=== PATIENT | female | born 1980 | race Caucasian/White ===

== ENCOUNTER 2019-04-25 12:18 | Emergency (ER) | payer OTHER, SELFPAY ==
[2019-04-25 12:56] VITALS: BP 116/66; PULSE 85; RESP 18; TEMP 36.9; O2SAT 98
[2019-04-25 14:24] LABS: Basophils Percent Auto 0.5 % (0.2-1.2); Eosinophils Absolute Auto 0.1 K/mm3 (0-0.3); Eosinophils Percent Auto 1.8 % (0-4.4); Hematocrit 39.9 % (37.0-47.0); Hemoglobin 13.2 g/dL (12.0-15.0); Immature Granulocyte Absolute 0.02 K/mm3 (0.00-0.031); Immature Granulocyte Percent A 0.3 % (0-0.5); Lymphocytes Absolute Auto 1.97 K/mm3 (0.9-3.2); Lymphocytes Percent Auto 26.9 % (18.3-44.2); Mean Corpuscular HGB Conc 33.1 g/dl (32-36); Mean Corpuscular Hemoglobin 29.5 pg (26-34); Mean Corpuscular Volume 89.1 fl (80-100); Mean Platelet Volume 9.2 fl (7.4-10.4); Monocytes Absolute Auto 0.6 K/mm3 (0.1-0.6); Monocytes Percent Auto 7.5 % (2.6-8.5); Neutrophils Absolute Auto 4.6 K/mm3 (1.3-6.7); Platelet Count Result 239 k/mm3 (150-375); Red Blood Count 4.48 M/mm3 (4.2-5.4); Red Cell Distribution Width 12.5 % (11.5-14.5); White Blood Count 7.3 K/mm3 (4.5-10.0)
[2019-04-25 14:36] LABS: Alanine Aminotransferase 19 U/L (4-35); Albumin Level 4.7 g/dL (3.5-5.1); Alkaline Phosphatase 152 U/L (38-126); Aspartate Amino Transferase 25 U/L (14-36); Bilirubin,Total 0.3 mg/dL (0.2-1.3); Blood Urea Nitrogen 11 mg/dL (7-17); Calcium 9.3 mg/dL (8.4-10.2); Carbon Dioxide 24 mmol/L (22-30); Chloride 105 mmol/L (98-107); Estimated CRCL calculation 112 ml/min; Estimated Glomerular Filt Rate > 60; Glucose 114 mg/dL (65-105); Potassium 4.1 mmol/L (3.4-5.0); Sodium 140 mmol/L (137-145)
[2019-04-25 14:37] LABS: Ethanol 122 mg/dL (<10)
[2019-04-25 15:09] VITALS: BP 120/75; PULSE 92; RESP 16; O2SAT 99
[2019-04-25 15:42] VITALS: PULSE 70
--- NOTE | 2019-04-25 15:43 | ED.GENADULT ---
HPI - General Adult General Chief complaint: Unspecified <Shankar Irizarry PA-C - Last Filed: 04/25/19 15:47> Stated complaint: withdrawing from alcohol <ANNA Salinas Last Filed: 04/25/19 15:47> Time Seen by Provider: 04/25/19 14:59 <ANNA Salinas Last Filed: 04/25/19 15:47> Source: patient <ANNA Salinas Last Filed: 04/25/19 15:47> Mode of arrival: ambulatory <ANNA Salinas Last Filed: 04/25/19 15:47> Limitations: no limitations <Shankar Irizarry PA-C - Last Filed: 04/25/19 15:47> History of Present Illness HPI narrative: Patient is a 38-year-old female who presents to emergency department for evaluation of stress and depression and alcohol use noting that she has had increasing stressors and has been having about 4 alcoholic drinks a day denies suicidal or homicidal ideation and does have a therapist and primary care which she has not seen for this complaint patient on arrival resting comfortably in the room in no distress denies vomiting or diarrhea or recent illness <Shankar Irizarry PA-C - Last Filed: 04/25/19 15:47> Related Data Home medications: Home Medications Medication Instructions Recorded Confirmed sertraline [Zoloft] 50 mg PO DAILY 05/25/19 05/25/19 <ANNA Salinas Last Filed: 04/25/19 15:47> Allergies/adverse reactions: Allergies Allergy/AdvReac Type Severity Reaction Status Date / Time ciprofloxacin Allergy Mild Nausea and Verified 07/19/18 15:17 Vomiting sulfamethoxazole AdvReac Unknown Nausea and Verified 07/19/18 15:17 Vomiting trimethoprim AdvReac Unknown Nausea and Verified 07/19/18 15:17 Vomiting Oyster Allergy Unknown Unknown Uncoded 07/19/18 15:17 <ANNA Salinas Last Filed: 04/25/19 15:47> Review of Systems Review of Systems: All systems reviewed & are unremarkable except as noted in HPI and below <ANNA Salinas Last Filed: 04/25/19 15:47> PMFSH Past Medical History Medical History: Medical History (Updated 05/26/19 @ 00:00 by Trevor Murphy) Acute anxiety Depression <Shankar Irizarry PA-C - Last Filed: 04/25/19 15:47> Social History Social History: Social History Gender identity (if verbalized by the patient): Female <Shankar Irizarry PA-C - Last Filed: 04/25/19 15:47> Exam Narrative: Exam Narrative: GENERAL: Well-appearing, well-nourished, and in no acute distress. HEAD: Normocephalic, atraumatic. EYES: PERRLA and EOMI. ENT: Nares clear, no rhinorrhea or epistaxis. Mucous membranes moist. CHEST: Clear to auscultation. No respiratory distress. No wheezes rales or rhonchi HEART: Regular rate and rhythm. No murmur heard. Normal peripheral pulses. ABDOMEN: Soft, nontender, nondistended EXTREMITIES: Normal range of motion. No edema. SKIN: Warm, dry, no rash. NEURO: No focal deficits. Alert and oriented x3. PSYCH: Normal mood and affect. <Shankar Irizarry PA-C - Last Filed: 04/25/19 15:47> Course Course Emergency Course: Patient in the room in no distress resting comfortably advised to follow with therapy also agreeing to return if symptoms worsen <Shankar Irizarry PA-C - Last Filed: 04/25/19 15:47> Vital Signs Vital signs: Vital Signs Temperature 36.9 C 04/25/19 12:56 Pulse Rate 85 04/25/19 12:56 Respiratory Rate 18 04/25/19 12:56 Blood Pressure 116/66 04/25/19 12:56 Pulse Oximetry 98 04/25/19 12:56 Temperature 36.9 C 04/25/19 12:56 Pulse Rate 86 04/25/19 16:01 Respiratory Rate 14 04/25/19 16:01 Blood Pressure 106/72 04/25/19 16:01 Pulse Oximetry 99 04/25/19 16:01 <Shankar Irizarry PA-C - Last Filed: 04/25/19 15:47> Vital Signs Temperature 36.9 C 04/25/19 12:56 Pulse Rate 85 04/25/19 12:56 Respiratory Rate 18 04/25/19 12:56 Blood Pressure 116/66 04/25/19 12:56 Pulse
[2019-04-25 15:57] LABS: Add Urine Microscopic? YES; Appearance Urine Cloudy (Clear); Bacteria Urine 1+ /hpf; Bilirubin Urine Negative (Negative); Blood Urine Negative (Negative); Color Urine Yellow (Yellow); Glucose Urine UA Negative (Negative); Ketones Urine Negative (Negative); Leukocyte Esterase Ur 3+ LEU/UL (Negative); Mucus Urine Rare /lpf; Nitrate Urine Negative (Negative); Protein Urine Negative (Negative); Specific Grav Ur 1.011 (1.001-1.035); Squamous Epithelial Cell Urine Many /hpf (Few); Urobilinogen Urine Negative mg/dL (<2.0)
[2019-04-25 16:01] VITALS: BP 106/72; PULSE 86; RESP 14; O2SAT 99
== END 2019-04-25 16:00 | disposition home or self-care (01) ==
PROVIDERS: Emergency Medicine; Emergency Medicine Emergency Medical Services; Emergency Provider Emergency Medicine
DX: F41.9 Anxiety disorder, unspecified (principal); F32.9 Major depressive disorder, single episode, unspecified; Z72.89 Other problems related to lifestyle
CPT/HCPCS: 36415; 80053; 80307; 81001; 85025; 87086; 87088; 99283

== ENCOUNTER 2019-05-25 15:12 | Emergency (ER) | payer OTHER, SELFPAY ==
--- NOTE | 2019-05-25 15:32 | ED.URI ---
HPI - URI/Sore Throat General Chief Complaint: Upper Respiratory Infection Stated Complaint: Sore Throat,Fever Time Seen by Provider: 05/25/19 15:33 Source: patient and RN notes reviewed History of Present Illness HPI Narrative: Patient is a 38-year-old female that presents the urgent care with reports of sore throat, fever, nonproductive cough and body aches. Patient states she also has some swollen lymph nodes . States that most of her symptoms started on Sunday and she noticed a low-grade fever today. Patient has not used any Tylenol or ibuprofen. Has only used vitamin C and vitamin D. No other acute complaints. No acute distress noted. Patient aware the plan of care. Related Data Home Medications Medication Instructions Recorded Confirmed sertraline [Zoloft] 50 mg PO DAILY 05/25/19 05/25/19 Allergies Allergy/AdvReac Type Severity Reaction Status Date / Time ciprofloxacin Allergy Mild Nausea and Verified 07/19/18 15:17 Vomiting sulfamethoxazole AdvReac Unknown Nausea and Verified 07/19/18 15:17 Vomiting trimethoprim AdvReac Unknown Nausea and Verified 07/19/18 15:17 Vomiting Oyster Allergy Unknown Unknown Uncoded 07/19/18 15:17 Review of Systems Review of Systems: Narrative: CONSTITUTIONAL: Reports a fever EYES: Denies visual changes, redness, or discharge. ENT: Reports of sore throat and postnasal drainage CARDIOVASCULAR: Denies chest pain, palpitations, or edema. RESPIRATORY: Reports of nonproductive cough without dyspnea GASTROINTESTINAL: Denies abdominal pain, nausea, vomiting, or diarrhea. GENITOURINARY: Denies dysuria or hematuria. SKIN: Denies rash or itching. MUSCULOSKELETAL: Denies back pain, joint pain; reports of body aches NEUROLOGIC: Denies headache, numbness, or weakness. All other systems reviewed are negative, except as documented in HPI. [facility] Past Medical History Medical History (Updated 05/25/19 @ 15:35 by JOSE Ross) Acute anxiety Depression Social History Social History Gender identity (if verbalized by the patient): Female Comments At the time of my signature, I reviewed and agree with the nursing past medical, surgical, social, and family history. There is no relevant family history pertinent to the patient complaint. Exam Narrative: Exam Narrative: GENERAL: This is a well-nourished, well-developed patient, in no apparent distress. HEAD: normocephalic, atraumatic. EYES: PERRL. Sclera clear/white. Vision is grossly intact. EARS: External ears normal, auditory canals clear and without drainage, TMs normal without perforation. Hearing grossly intact. NOSE: External nose normal with no obvious nasal discharge, nares without redness, no rhinorrhea. THROAT: Mucous membranes moist, moderate erythema noted posterior oropharynx with moderate postnasal drainage NECK: Neck supple, non-tender mild bilateral submandibular lymphadenopathy CARDIOVASCULAR: Regular rate and rhythm without murmurs, gallops, or rubs. RESPIRATORY: Clear to auscultation. Breath sounds equal bilaterally. No wheezes, rales, or rhonchi. SKIN: warm, intact with no suspicious lesions or rash, good texture and turgor. NEURO: awake, alert, and oriented to person, place and time. There were no obvious focal neurologic abnormalities. EXTREMITIES: No clubbing, cyanosis, or edema. Course Vital Signs Vital signs: Vital Signs Temperature 99.7 F H 05/25/19 19:13 Pulse Rate 89 05/25/19 19:13 Respiratory Rate 20 05/25/19 19:13 Blood Pressure 143/77 H 05/25/19 19:13 Pulse Oximetry 100 05/25/19 19:13 Temperature 99.7 F H 05/25/19 19:13 Pulse Rate 89 05/25/19 19:13 Respiratory Rate 20 05/25/19 19:13 Blood Pressure 143/77 H 05/25/19 19:13 Pulse Oximetry 100 05/25/19 19:13 Reviewed?patient is informed that they may have pre-hypertension or hypertension based on a blood pressure reading in the department. I recomme
[2019-05-25 19:13] VITALS: BP 143/77; PULSE 89; RESP 20; TEMP 37.6; O2SAT 100
== END 2019-05-25 15:53 | disposition home or self-care (01) ==
PROVIDERS: Emergency Provider Nurse Practitioner Family
DX: J02.0 Streptococcal pharyngitis (principal); F41.9 Anxiety disorder, unspecified; F32.9 Major depressive disorder, single episode, unspecified
CPT/HCPCS: 87804; 87880; 99213; G0463

== ENCOUNTER 2020-05-24 01:41 | Emergency (ER) | payer BC, SELFPAY ==
[2020-05-24 01:45] VITALS: BP 127/89; PULSE 81; RESP 18; TEMP 35.8; O2SAT 99
--- NOTE | 2020-05-24 02:03 | ED.GENADULT ---
HPI - General Adult General Chief complaint: Alcohol Stated complaint: alcohol withdrawl Time Seen by Provider: 05/24/20 01:45 Source: RN notes reviewed History of Present Illness HPI narrative: Patient presents emergency department from home for her alcohol withdrawal symptoms. Patient states she has history of alcohol abuse and been sober so she began drinking again 9 days ago states she is drinking approximately 8 drinks a day states that she wanted to quit again had taken her Concerta today she said taking that today every 2 hours she felt hot and cold at the same time as well as feeling of prickly skin in her bilateral legs she states that she felt she had a drink every 2 hours to get rid of the symptoms which would help when she had a drink in 1 to return currently she denies any symptoms at this time denies any fever chills chest pain shortness of breath or any other symptoms Related Data Home Medications Medication Instructions Recorded Confirmed sertraline [Zoloft] 50 mg PO DAILY 05/25/19 05/25/19 Allergies Allergy/AdvReac Type Severity Reaction Status Date / Time ciprofloxacin Allergy Mild Nausea and Verified 05/24/20 02:03 Vomiting sulfamethoxazole AdvReac Unknown Nausea and Verified 05/24/20 02:03 Vomiting trimethoprim AdvReac Unknown Nausea and Verified 05/24/20 02:03 Vomiting Oyster Allergy Unknown Unknown Uncoded 07/19/18 15:17 Review of Systems Review of Systems: Narrative: Gen.: Denies fevers or chills Eyes: Denies eye pain or visual change ENT: Denies congestion Respiratory: Denies shortness of breath or cough CV: Denies chest pain or palpitations GI: Denies abdominal pain nausea, emesis or diarrhea Musculoskeletal: Denies back pain or muscle pain Neuro: Denies numbness, tingling, weakness or focal weakness Skin: Denies rash Except as documented, all other systems reviewed and negative PMFSH Past Medical History Medical History Acute anxiety Depression Social History Social History (Updated 05/24/20 @ 02:05 by Benito Martines DO) Smoking status: Never smoker Gender identity (if verbalized by the patient): Female Exam Narrative: Exam Narrative: APPEARANCE: No acute distress, nontoxic, resting in bed EYES: EOMI HEENT: Normocephalic, atraumatic, OMM RESPIRATORY: No respiratory distress Clear to auscultation bilaterally with no rhonchi wheezing or rales. CARDIOVASCULAR: Regular rate and rhythm without murmurs rubs or gallops. ABDOMINAL: Soft, nontender, nondistended, no rebound or guarding MUSCULOSKELETAl: Moves all extremities. No clubbing, cyanosis or edema. NEURO: Awake and alert. Following commands, speech normal, no focal deficits SKIN:: Warm, dry. No rashes lesions or abrasions PSYCHIATRIC: Normal affect/mood, Course Course Emergency Course: Discussed with patient alcohol withdrawal she states she has been on Librium before in the past with good relief. Offered her alcohol withdrawal treatment facilities and does not wish to have those at this time Discussed with patient results of workup and diagnosis. Discussed need for follow-up with primary care, proper use of medication, and reasons to return to the emergency department. Patient understands and agrees to current treatment plan Vital Signs Vital signs: Vital Signs Temperature 96.4 F L 05/24/20 01:45 Pulse Rate 81 05/24/20 01:45 Respiratory Rate 18 05/24/20 01:45 Blood Pressure 127/89 05/24/20 01:45 Pulse Oximetry 99 05/24/20 01:45 Temperature 96.4 F L 05/24/20 01:45 Pulse Rate 81 05/24/20 01:45 Respiratory Rate 18 05/24/20 01:45 Blood Pressure 127/89 05/24/20 01:45 Pulse Oximetry 99 05/24/20 01:45 Medical Decision Making Vital Signs Vital Signs: Vital Signs Temperature 96.4 F L 05/24/20 01:45 Pulse Rate 81 05/24/20 01:45 Respiratory Rate 18 05/24/20 01:45 Blood Pressure 127/89 05/24/20 01:45 Pulse Ox
[2020-05-24 02:17] LABS: Basophils Absolute Auto 0.1 K/mm3 (0.0-0.1); Basophils Percent Auto 0.8 % (0.2-1.2); Eosinophils Absolute Auto 0.2 K/mm3 (0-0.3); Hematocrit 39.2 % (37.0-47.0); Hemoglobin 13.1 g/dL (12.0-15.0); Immature Granulocyte Absolute 0.03 K/mm3 (0.00-0.031); Immature Granulocyte Percent A 0.4 % (0-0.5); Lymphocytes Absolute Auto 2.54 K/mm3 (0.9-3.2); Lymphocytes Percent Auto 32.4 % (18.3-44.2); Mean Corpuscular HGB Conc 33.4 g/dl (32-36); Mean Corpuscular Hemoglobin 30.5 pg (26-34); Mean Corpuscular Volume 91.4 fl (80-100); Mean Platelet Volume 9.3 fl (7.4-10.4); Monocytes Absolute Auto 0.5 K/mm3 (0.1-0.6); Monocytes Percent Auto 6.8 % (2.6-8.5); Neutrophils Absolute Auto 4.5 K/mm3 (1.3-6.7); Neutrophils Percent Auto 57.6 % (45.5-73.1); Platelet Count Result 235 k/mm3 (150-375); Red Blood Count 4.29 M/mm3 (4.2-5.4); Red Cell Distribution Width 12.5 % (11.5-14.5); White Blood Count 7.8 K/mm3 (4.5-10.0)
[2020-05-24 02:29] LABS: Ethanol 100 mg/dL (<10)
[2020-05-24 02:33] LABS: Alanine Aminotransferase 13 U/L (4-35); Albumin Level 4.2 g/dL (3.5-5.1); Alkaline Phosphatase 111 U/L (38-126); Anion Gap 8 mmol/L (8-16); Aspartate Amino Transferase 25 U/L (14-36); Bilirubin,Total 0.1 mg/dL (0.2-1.3); Blood Urea Nitrogen 8 mg/dL (7-17); Calcium 8.8 mg/dL (8.4-10.2); Carbon Dioxide 25 mmol/L (22-30); Chloride 109 mmol/L (98-107); Estimated CRCL calculation 111 ml/min; Estimated Glomerular Filt Rate > 60; Glucose 98 mg/dL (65-105); Potassium 4.1 mmol/L (3.4-5.0); Sodium 142 mmol/L (137-145)
[2020-05-24 03:17] VITALS: BP 120/81; PULSE 89; RESP 18; O2SAT 97
== END 2020-05-24 03:19 | disposition home or self-care (01) ==
PROVIDERS: Emergency Provider Emergency Medicine; PCP Family Medicine
DX: F10.139 Alcohol abuse with withdrawal, unspecified (principal); F41.9 Anxiety disorder, unspecified; F32.9 Major depressive disorder, single episode, unspecified; Y90.5 Blood alcohol level of 100-119 mg/100 ml
CPT/HCPCS: 36415; 80053; 80307; 85025; 99283

== ENCOUNTER 2022-02-11 02:59 | Emergency (ER) | payer OTHER, SELFPAY ==
--- NOTE | ~2022-02-11 | CT_ITS ---
EXAMINATION: CTA chest PE protocol DATE: 02/11/2022 06:47 INDICATION: Shortness of breath. Elevated d-dimer. TECHNIQUE: Computed tomography (CT) pulmonary angiogram of the chest was performed with 100 mL Omnipa que-350 intravenous contrast. Additional 3D reconstructions utilizing coronal maximum intensity proje ction (MIP) were performed. Automated exposure control and iterative reconstruction technique were em ployed. The dose-length product was 207.43 mGy-cm. COMPARISON: None FINDINGS: Excellent contrast opacification of the pulmonary arteries. There is mild streak artifact from dense contrast in the superior vena cava and right atrium. No significant motion artifact yielding diagnost ic quality study which demonstrates no pulmonary embolism. Tiny calcified left lower lobe nodule cons istent with old granulomatous disease. 7 x 2 mm thin triangular intrafissural lymph node along the ri ght minor fissure. No pneumonia, pulmonary edema or pleural effusion. Heart size is normal. No perica rdial effusion. No pathologically enlarged thoracic lymphadenopathy. Visual is upper abdomen is unrem arkable. Mild thoracic spondylosis. IMPRESSION: 1. No pulmonary embolism or other acute cardiopulmonary disease. Reviewed, dictated and finalized at location [facility]. [facility] [employer]
--- NOTE | ~2022-02-11 | XR_ITS ---
EXAMINATION: XR chest 2V DATE: 02/11/2022 04:35 INDICATION: Chest pain TECHNIQUE: PA and lateral views of the chest were obtained. COMPARISON: Chest radiograph dated 08/24/2018 FINDINGS: The lungs remain clear with no focal airspace opacities, pulmonary edema, pleural effusion or pneumot horax. The cardiomediastinal silhouette is normal. Mild thoracic spondylosis. IMPRESSION: 1. No acute cardiopulmonary disease. Reviewed, dictated and finalized at location A. [employer]
[2022-02-11 03:05] VITALS: BP 121/81; PULSE 116; RESP 18; TEMP 36.7; O2SAT 100
[2022-02-11 03:48] VITALS: BP 129/92; PULSE 109; RESP 18; TEMP 36.7; O2SAT 100
--- NOTE | 2022-02-11 03:56 | ECG_ITS ---
Measurements Intervals New Point Rate: 90 P: TN: 0 QRS: 90 QRSD: 92 T: 72 QT: 372 QTc: 456 Interpretive Statements SINUS RHYTHM NONSPECIFIC ST SEGMENT ABNORMALITY BORDERLINE ECG COMPARED TO ECG 08/24/2018 15:27:20 NO SIGNIFICANT CHANGE Electronically Signed On 02-13-2022 15:01:54 [employer] by Aj Huynh M.D.
--- NOTE | 2022-02-11 05:07 | ED.GENADULT ---
HPI - General Adult General Chief complaint: Unspecified <Go Bethea MD - Last Filed: 02/11/22 07:05> Stated complaint: heart racing <Go Bethea MD - Last Filed: 02/11/22 07:05> Time Seen by Provider: 02/11/22 03:46 <Go Bethea MD - Last Filed: 02/11/22 07:05> History of Present Illness HPI narrative: Patient is a 41-year-old female who presents ER with racing heart. Patient reports she began having some midthoracic back pain this evening that was aching and warm. She felt like her temperature elevated. These are symptoms she gets when she is beginning to pass a kidney stone. Thus she took some Flomax. Shortly later she started feeling like her heart rate was elevated and she was monitoring its rate. She reports it can drop to 140 bpm but not below 100. She began getting some chest tightness. She does have history of anxiety is unsure if that could be related. No sharp chest pain. No pain with deep breath. No exertional chest discomfort. No history of blood clots. Patient is not having any dysuria or urinary frequency/urgency. No abdominal discomfort. Patient reports having a lithotripsy performed at [facility] on 01/23/2022. <Go Bethea MD - Last Filed: 02/11/22 07:05> Related Data Home medications: Home Medications Medication Instructions Recorded Confirmed sertraline 50 mg tablet (Zoloft) 50 mg PO DAILY 05/25/19 05/25/19 <Go Bethea MD - Last Filed: 02/11/22 07:05> Allergies/adverse reactions: Allergies Allergy/AdvReac Type Severity Reaction Status Date / Time ciprofloxacin Allergy Mild Nausea and Verified 05/24/20 02:03 Vomiting sulfamethoxazole AdvReac Unknown Nausea and Verified 05/24/20 02:03 Vomiting trimethoprim AdvReac Unknown Nausea and Verified 05/24/20 02:03 Vomiting Oyster Allergy Unknown Unknown Uncoded 07/19/18 15:17 <Go Bethea MD - Last Filed: 02/11/22 07:05> Review of Systems Review of Systems: All systems reviewed & are unremarkable except as noted in HPI and below <Go Bethea MD - Last Filed: 02/11/22 07:05> Constitutional: Constitutional: Denies chills, Denies fatigue and Reports fever(s) <Go Bethea MD - Last Filed: 02/11/22 07:05> Cardiovascular: Cardiovascular: Reports chest pain, Reports rapid heart rate, Denies irregular heart rhythm and Denies radiating jaw, neck or arm pain <Go Bethea MD - Last Filed: 02/11/22 07:05> Respiratory: Respiratory: Denies cough, Denies pain on inspiration and Denies dyspnea <Go Bethea MD - Last Filed: 02/11/22 07:05> Gastrointestinal: Gastrointestinal: Denies abdominal pain, Denies nausea and Denies vomiting <Go Bethea MD - Last Filed: 02/11/22 07:05> Genitourinary: Genitourinary: Denies nocturia, Denies dysuria, Reports flank pain and Denies urinary urgency <Go Bethea MD - Last Filed: 02/11/22 07:05> PMFSH Past Medical History Medical History: Medical History (Updated 02/11/22 @ 07:05 by Go Bethea MD) Acute anxiety Depression Kidney stones <Go Bethea MD - Last Filed: 02/11/22 07:05> Surgical History Surgical History: Surgical History (Updated 02/11/22 @ 05:15 by Go Bethea MD) History of bladder surgery Ureter repair <Go Bethea MD - Last Filed: 02/11/22 07:05> Social History Social History: Social History (Updated 05/24/20 @ 02:05 by Benito Martines DO) Smoking status: Never smoker Gender identity (if verbalized by the patient): Female <Go Bethea MD - Last Filed: 02/11/22 07:05> Exam Narrative: GENERAL: Well-appearing, well-nourished, and in no acute distress. HEAD: Normocephalic, atraumatic. EYES: PERRL and EOMI. ENT: Mucous membranes moist. CHEST: Clear to auscultation. No respiratory distress. HEART: Tachycardic and regular. Normal peripheral pulses. ABDOMEN: Soft, nontender, nondistended. No CVA tend
[2022-02-11] MEDS: ONDANSETRON INJ 4 MG/2 ML VIAL IV PUSH (05:42)
[2022-02-11] MEDS: SODIUM CHLORIDE 0.9% IV 1,000 ML 999 ML IV CONT (05:43)
[2022-02-11 05:44] LABS: Basophils Percent Auto 0.8 % (0.2-1.2); Eosinophils Absolute Auto 0.1 K/mm3 (0-0.3); Eosinophils Percent Auto 1.9 % (0-4.4); Hematocrit 40.7 % (37.0-47.0); Hemoglobin 13.3 g/dL (12.0-15.0); Lymphocytes Absolute Auto 1.42 K/mm3 (0.9-3.2); Lymphocytes Percent Auto 27.1 % (18.3-44.2); Mean Corpuscular HGB Conc 32.7 g/dl (32-36); Mean Corpuscular Volume 91.7 fl (80-100); Mean Platelet Volume 9.1 fl (7.4-10.4); Monocytes Absolute Auto 0.5 K/mm3 (0.1-0.6); Monocytes Percent Auto 8.6 % (2.6-8.5); Neutrophils Absolute Auto 3.2 K/mm3 (1.3-6.7); Neutrophils Percent Auto 61.6 % (45.5-73.1); Platelet Count Result 196 k/mm3 (150-375); Red Blood Count 4.44 M/mm3 (4.2-5.4); Red Cell Distribution Width 13.2 % (11.5-14.5); White Blood Count 5.2 K/mm3 (4.5-10.0)
[2022-02-11 05:54] LABS: Appearance Urine Clear (Clear); Bilirubin Urine 2+ (Negative); Blood Urine Trace-lysed (Negative); Color Urine Yellow (Yellow); Glucose Urine UA Negative (Negative); Ketones Urine 4+ mg/dL (Negative); Leukocyte Esterase Ur Negative LEU/UL (Negative); Nitrate Urine Negative (Negative); Protein Urine Negative (Negative); Specific Grav Ur >= 1.030 (1.001-1.035); Urobilinogen Urine 0.2 mg/dL (<2.0)
[2022-02-11 05:56] LABS: Alanine Aminotransferase 15 U/L (6-35); Albumin Level 4.7 g/dL (3.5-5.1); Alkaline Phosphatase 123 U/L (38-126); Anion Gap 13 mmol/L (8-16); Aspartate Amino Transferase 24 U/L (14-36); Bilirubin,Total 0.4 mg/dL (0.2-1.3); Blood Urea Nitrogen 8 mg/dL (7-17); Calcium 8.3 mg/dL (8.4-10.2); Carbon Dioxide 20 mmol/L (22-30); Chloride 101 mmol/L (98-107); Estimated CRCL calculation 108 ml/min; Estimated Glomerular Filt Rate > 60; Glucose 76 mg/dL (65-110); Potassium 3.7 mmol/L (3.4-5.0); Sodium 134 mmol/L (137-145)
[2022-02-11 06:01] LABS: INR 0.9
[2022-02-11 06:02] LABS: Bacteria Urine 2+ /hpf; Mucus Urine Rare /lpf; Partial Thromboplastin Time 28.8 SECONDS (22.3-36.8); Squamous Epithelial Cell Urine Moderate /hpf (Few); WBC Urine 0-3 /hpf
[2022-02-11 06:03] LABS: Add Urine Microscopic? YES
[2022-02-11 06:04] LABS: Troponin I 0.017 ng/mL (0.000-0.034)
[2022-02-11 06:12] LABS: D Dimer 0.86 ug/mL (<0.48)
[2022-02-11 07:31] LABS: Troponin I 0.013 ng/mL (0.000-0.034)
== END 2022-02-11 08:30 | disposition home or self-care (01) ==
PROVIDERS: Emergency Provider Emergency Medicine
DX: R00.2 Palpitations (principal); R07.9 Chest pain, unspecified; F41.9 Anxiety disorder, unspecified; F32.9 Major depressive disorder, single episode, unspecified
CPT/HCPCS: 36415; 71046; 71275; 80053; 81001; 84484; 85025; 85380; 85610; 85730; 93005; 96361; 96374; 99284; J2405; J7030; Q9967